=== PATIENT | female | born 1985 | race Caucasian/White ===

== ENCOUNTER 2017-09-22 21:39 | Emergency (ER) | payer OTHER ==
[2017-09-22] MEDS ORDERED: Ibuprofen 200 MG TAB ONE (22:37)
== END 2017-09-22 23:10 | disposition home or self-care (01) ==
LOC: ERS 21:39
DX: J01.90 Acute sinusitis, unspecified (principal); F41.9 Anxiety disorder, unspecified
CPT/HCPCS: 87804; 99283

== ENCOUNTER 2017-12-29 14:04 | Outpatient (CLI) | payer OTHER ==
--- NOTE | 2017-12-29 16:59 | MRI ---
MRI OF THE LUMBAR SPINE WITHOUT CONTRAST: 12/29/17 COMPARISON: MRI of the pelvis 07/21/10 from [facility]. HISTORY: Lumbar radiculopathy with low back pain radiating down both legs. TECHNIQUE: Multiplanar and multisequence MR images were obtained in the lumbar spine without contrast. FINDINGS: No significant disc desiccation is seen. The vertebral bodies and intervertebral discs demonstrate no rmal height and alignment without fracture or subluxation. The conus medullaris terminates normally a t L1-2. There is stable high signal within the S4 segment on the T2 sequence. This is stable compared to the prior examination and nonspecific. The prevertebral and paraspinal soft tissues are otherwise unremarkable. No significant disc bulge or protrusion is seen throughout the lumbar spine. No posterior facet arthr osis is seen. No neural foraminal or central canal stenosis. IMPRESSION: No significant lumbar spine abnormality. POS: [facility]
--- NOTE | 2017-12-29 17:06 | MRI ---
MRI OF PELVIS WITH AND WITHOUT CONTRAST 12/29/17 HISTORY: Followup abnormalities seen in the sacrum. M54.15. COMPARISON: Prior MRI examinations from 2009. FINDINGS: The nonenhancing T2 hyperintense, T1 hypointense focus with the S4 vertebral body has not increased i n size. There is sclerosis around this area. No pathologic fracture. There appears to be a lumbosacral transitional vertebra. The uterus is retroflexed. Small volume free fluid in the pelvis. Right ovarian cyst is present. IMPRESSION: Size unchanged, benign lesion within the sacrum at S4 may represent notochordal remnant versus a tia gn cartilaginous lesion. POS: [facility]
== END 2017-12-29 14:05 | disposition home or self-care (01) ==
LOC: SCSMRI 14:04
PROVIDERS: ATTEND Internal Medicine
DX: M54.16 Radiculopathy, lumbar region (principal); R93.7 Abnormal findings on diagnostic imaging of other parts of musculoskeletal system; M53.3 Sacrococcygeal disorders, not elsewhere classified
CPT/HCPCS: 72148; 72197

== ENCOUNTER 2019-01-21 07:38 | Emergency (ER) | payer OTHER ==
[2019-01-21 08:16] LABS: Bilirubin Small (Negative); Blood, Urine Large (Negative); Glucose, Urine (Dipstick) Negative (Negative); Leukocyte Negative (Negative); Nitrite Negative (Negative); Protein, Urine (Dipstick) 30 mg/dL (Neg-Trace); Urobilinogen 0.2 mg/dL (Less than 2)
[2019-01-21 08:19] LABS: Pregnancy Test - Urine (BHCG) Negative (Negative); Pregu Control Background? CLEAR/WHITE (CLR/WHITE); Pregu Control Bar Appear? YES (CONTROL BAR); Specific Gravity 1.025 (1.002-1.036)
[2019-01-21 08:26] LABS: Clarity Cloudy (Clear)
[2019-01-21 08:28] LABS: RBC/HPF Greater than 50 HPF (0-3); WBC/HPF 0-3 HPF (0-3)
[2019-01-21 08:29] LABS: Calcium Oxalate Crystals 1+ HPF (None Seen)
[2019-01-21 08:29] LABS: #Basophils 0.1 thou/uL (0.0-0.2); #Eosinphils 0.1 thou/uL (0.0-0.7); #Lymphocytes 5.2 thou/uL (1.20-3.40); #Monocytes 0.8 thou/uL (0.11-0.59); #Neutrophils 4.2 thou/uL (1.40-6.50); %Basophils 0.9 % (0.0-1.0); %Eosinophils 0.7 % (0.0-10.0); %Lymphocytes 49.7 % (21.0-51.0); %Neutrophils 40.7 % (42.0-75.0); Hemoglobin 14.9 g/dL (12.0-16.0); Mean Corpuscular Hemoglobin 33.3 pg (27.0-31.0); Platelet Count 329 thou/uL (130-400); RBC Distribution Width 11.4 % (11.5-14.5); Red Blood Cell (RBC) Count 4.48 mill/uL (4.20-5.40); White Blood Cell (WBC) Count 10.4 thou/uL (4.8-10.8)
[2019-01-21 08:30] LABS: Mucous/LPF Few LPF (<2+)
[2019-01-21 08:31] LABS: Bacteria/HPF Rare-Few HPF (None Seen)
--- NOTE | 2019-01-21 08:44 | CT ---
CT of abdomen and pelvis: 01/21/2019 COMPARISON: 09/21/2007 HISTORY: Back pain, lower abdominal pain, flank pain TECHNIQUE: Axial CT imaging at 5 mm intervals from lung bases through pubic symphysis without contras t. Coronal reformatted imaging obtained. FINDINGS: Lack of contrast media limits assessment of the viscera, bowel, vascular structures, and fo r lymphadenopathy. The imaged lung bases are unremarkable. No free intraperitoneal air or fluid. The liver, spleen, and gallbladder appear grossly unremarkable. The pancreas and the adrenal glands appear grossly unremarkable as well. There are 3 punctate nonobstructing stones within the left kidney. Three similar punctate stones are noted within the right kidney. Renal calculi measure up to 3 mm on the right and 2 mm on the left. The urinary bladder is decompressed and thus, not well assessed. The left ureter is mildly prominent. There is a calcification along the course of the distal left ure ter measuring approximately 3 mm, best seen on coronal image 66 and axial image 71. This may signify a distal obstructing left renal calculus. No evidence for obstructive uropathy is noted on the right. No evidence for bowel inflammatory change or bowel obstruction. Review of the osseous structures demonstrates no worrisome lytic or blastic lesion. IMPRESSION: Bilateral renal calculi as detailed above. Findings suspicious for a 3 [address] ne within the distal left ureter as detailed above
[2019-01-21] MEDS ORDERED: Ketorolac Tromethamine 30 MG/ML VIAL ONE (08:48)
[2019-01-21 08:51] LABS: ALT (SGPT) 9 U/L (8-55); AST (SGOT) 10 U/L (5-34); Albumin 4.1 g/dL (3.5-5.0); Alkaline Phosphatase 51 U/L (40-150); Anion Gap 12 mmol/L (10-20); BUN (Urea Nitrogen) 8 mg/dL (7.0-18.7); Bilirubin, Total 0.3 mg/dL (0.2-1.2); Calc. Creatinine Clearance 0 mL/min (70-130); Calcium 9.2 mg/dL (7.8-10.44); Carbon Dioxide 27 mmol/L (22-29); Chloride 104 mmol/L (98-107); Estimated GFR-MDRD 71; Globulin 2.8 g/dL (2.4-3.5); Glucose 80 mg/dL (70-105); Potassium 3.1 mmol/L (3.5-5.1); Protein, Total 6.9 g/dL (6.0-8.3); Sodium 140 mmol/L (136-145)
[2019-01-21] MEDS ORDERED: Potassium Chloride 20 MEQ TAB ONE (09:08)
[2019-01-21] MEDS ORDERED: Morphine 4 MG/ML VIAL ONE (09:08)
[2019-01-21] MEDS ORDERED: Ondansetron PF 4 MG/2 ML Vial ONE (09:08)
--- NOTE | 2019-01-21 10:34 | ULT ---
PELVIC ULTRASOUND INCLUDING TRANSABDOMINAL AND TRANSVAGINAL AND VASCULAR DUPLEX WITH COLOR AND SPECTR AL DOPPLER IMAGING: HISTORY: Pelvic pain and back pain. FINDINGS: The uterus measures 6.9 x 4.5 x 3.4 cm with a 0.8 cm endometrium. The right kidney measures 2.9 x 2.3 x 2.4 cm containing a 1.6 x 1.8 x 1.9 cm dominant follicle. The left ovary measures 2.3 x 1.3 x 1.5 cm. No abnormal fluid collection. No intrauterine mass. IMPRESSION: No significant acute process. A 1.6 x 1.8 x 1.9 cm dominant follicle right ovary. POS: [facility]
== END 2019-01-21 10:20 | disposition home or self-care (01) ==
LOC: ERS 07:38
DX: N13.2 Hydronephrosis with renal and ureteral calculous obstruction (principal); F41.9 Anxiety disorder, unspecified
CPT/HCPCS: 74176; 76856; 80053; 81003; 81015; 81025; 85025; 96361; 96374; 96375; J1885; J2270; J2405

== ENCOUNTER 2019-07-14 20:51 | Emergency (ER) | payer OTHER, SELFPAY ==
[2019-07-14] MEDS ORDERED: Ibuprofen 200 MG TAB ONE (21:06)
[2019-07-14] MEDS ORDERED: Ketorolac Tromethamine 60 MG/2 ML VIAL ONE (22:41)
[2019-07-14] MEDS ORDERED: Dexamethasone 10 MG/ML VIAL ONE (23:32)
== END 2019-07-15 | disposition home or self-care (01) ==
LOC: ERS 20:51
DX: J02.9 Acute pharyngitis, unspecified (principal); F41.9 Anxiety disorder, unspecified
CPT/HCPCS: 87081; 87430; 87804; 96372; 99283; J1100; J1885

== ENCOUNTER 2019-07-17 22:36 | Emergency (ER) | payer OTHER ==
[2019-07-17 23:21] LABS: #Lymphocytes 1.8 thou/uL (1.20-3.40); #Monocytes 0.6 thou/uL (0.11-0.59); #Neutrophils 5.2 thou/uL (1.40-6.50); %Basophils 0.3 % (0.0-1.0); %Eosinophils 0.3 % (0.0-10.0); %Lymphocytes 23.5 % (21.0-51.0); %Monocytes 7.4 % (0.0-10.0); %Neutrophils 68.5 % (42.0-75.0); Hemoglobin 14.4 g/dL (12.0-16.0); Mean Corpuscular Hemoglobin 34.2 pg (27.0-31.0); Platelet Count 287 thou/uL (130-400); RBC Distribution Width 11.8 % (11.5-14.5); White Blood Cell (WBC) Count 7.6 thou/uL (4.8-10.8)
[2019-07-17 23:31] LABS: BHCG - Serum Negative (NEGATIVE); Pregs Control Background? CLEAR/WHITE (CLR/WHITE); Pregs Control Bar Appear? YES (CONTROL BAR)
[2019-07-17 23:37] LABS: ALT (SGPT) 21 U/L (8-55); AST (SGOT) 19 U/L (5-34); Albumin 4.3 g/dL (3.5-5.0); Alkaline Phosphatase 65 U/L (40-110); Anion Gap 16 mmol/L (10-20); BUN (Urea Nitrogen) 4 mg/dL (7.0-18.7); Bilirubin, Total 0.5 mg/dL (0.2-1.2); Calc. Creatinine Clearance 0 mL/min (70-130); Calcium 9.6 mg/dL (7.8-10.44); Carbon Dioxide 25 mmol/L (22-29); Chloride 105 mmol/L (98-107); Estimated GFR-MDRD Greater than 90; Globulin 3.4 g/dL (2.4-3.5); Glucose 97 mg/dL (70-105); Potassium 3.6 mmol/L (3.5-5.1); Protein, Total 7.7 g/dL (6.0-8.3); Sodium 142 mmol/L (136-145)
--- NOTE | 2019-07-17 23:40 | RAD ---
EXAM: CHEST ONE VIEW HISTORY: Cough COMPARISON: None FINDINGS: The cardiac silhouette and pulmonary vasculature is within normal limits. The lungs are clear. The os seous structures are intact. IMPRESSION: No acute cardiopulmonary process.
[2019-07-18] MEDS ORDERED: Ketorolac Tromethamine 30 MG/ML VIAL ONE (00:07)
[2019-07-18 00:27] LABS: Bilirubin Negative (Negative); Blood, Urine Negative (Negative); Clarity Clear (Clear); Glucose, Urine (Dipstick) Normal (Negative); Leukocyte Negative Leu/uL (Negative); Nitrite Negative (Negative); Protein, Urine (Dipstick) Negative (Neg-Trace); Urobilinogen Normal mg/dL (Less than 2)
== END 2019-07-18 00:30 | disposition home or self-care (01) ==
LOC: ERS 22:36
DX: J10.1 Influenza due to other identified influenza virus with other respiratory manifestations (principal); F41.9 Anxiety disorder, unspecified; F32.9 Major depressive disorder, single episode, unspecified; Z79.899 Other long term (current) drug therapy
CPT/HCPCS: 71045; 80053; 81003; 84484; 84703; 85025; 85379; 87804; 93005; 96361; 96374; J1885

== ENCOUNTER 2020-02-13 06:38 | Outpatient (CLI) | payer OTHER ==
--- NOTE | 2020-02-13 07:43 | ULT ---
Pelvic sonogram transabdominal imaging with duplex evaluation HISTORY: Left pelvic pain. COMPARISON: 01/21/2019. Findings urinary bladder has normal appearance. Homogeneous Uterus is slightly retroverted and measur es up to 5.6 cm. Endometrium is 0.5 cm. No free fluid. Each ovary has a normal appearance with good color and spectral Doppler flow. IMPRESSION : No abnormalities are demonstrated.
== END 2020-02-13 06:39 | disposition home or self-care (01) ==
LOC: BICULT 06:38
PROVIDERS: ATTEND Physician Assistant
DX: R10.32 Left lower quadrant pain (principal); R10.2 Pelvic and perineal pain
CPT/HCPCS: 76856

== ENCOUNTER 2021-05-20 02:39 | Emergency (ER) | payer OTHER ==
[2021-05-20 03:19] LABS: Bilirubin Negative (Negative); Blood, Urine Negative (Negative); Clarity Clear (Clear); Glucose, Urine (Dipstick) Normal (Negative); Ketone, Urine Negative (Negative); Leukocyte Negative Leu/uL (Negative); Nitrite Negative (Negative); Protein, Urine (Dipstick) 20 mg/dL (Neg-Trace); Specific Gravity, Urine 1.032 (1.002-1.036); Urobilinogen Normal mg/dL (Less than 2); pH, Urine 5.5 (5.0-9.0)
[2021-05-20 03:20] LABS: Pregnancy Test - Urine (BHCG) Negative (Negative); Pregu Control Background? CLEAR/WHITE (CLR/WHITE); Pregu Control Bar Appear? YES (CONTROL BAR); Specific Gravity 1.032 (1.002-1.036)
[2021-05-20 04:16] LABS: #Basophils 0.1 thou/uL (0.0-0.2); #Eosinphils 0.1 thou/uL (0.0-0.7); #Lymphocytes 3.2 thou/uL (1.20-3.40); #Monocytes 0.7 thou/uL (0.11-0.59); #Neutrophils 4.2 thou/uL (1.40-6.50); %Basophils 0.7 % (0.0-1.0); %Eosinophils 1.2 % (0.0-10.0); %Lymphocytes 38.4 % (21.0-51.0); %Monocytes 8.6 % (0.0-10.0); %Neutrophils 51.1 % (42.0-75.0); Hemoglobin 13.9 g/dL (12.0-16.0); Mean Corpuscular HGB CONC 31.3 g/dL (32.0-36.0); Mean Corpuscular Hemoglobin 31.1 pg (27.0-31.0); Mean Corpuscular Volume 99.4 fL (78.0-98.0); Mean Platelet Volume 7.1 fL (7.4-10.4); Platelet Count 349 thou/uL (130-400); RBC Distribution Width 11.5 % (11.5-14.5); Red Blood Cell (RBC) Count 4.48 mill/uL (4.20-5.40); White Blood Cell (WBC) Count 8.2 thou/uL (4.8-10.8)
[2021-05-20 04:34] LABS: ALT (SGPT) 8 U/L (8-55); AST (SGOT) 14 U/L (5-34); Albumin 4.4 g/dL (3.5-5.0); Alkaline Phosphatase 61 U/L (40-110); Anion Gap 12 mmol/L (10-20); BUN (Urea Nitrogen) 9 mg/dL (7.0-18.7); Bilirubin, Total 0.4 mg/dL (0.2-1.2); Calc. Creatinine Clearance 0 mL/min (70-130); Calcium 9.7 mg/dL (7.8-10.44); Carbon Dioxide 26 mmol/L (22-29); Chloride 102 mmol/L (98-107); Globulin 3.6 g/dL (2.4-3.5); Glucose 98 mg/dL (70-105); Potassium 3.6 mmol/L (3.5-5.1); Sodium 136 mmol/L (136-145)
[2021-05-20] MEDS ORDERED: Ketorolac Tromethamine 30 MG/ML VIAL ONE (05:25)
[2021-05-22 09:15] LABS: Chlamydia by PCR Not Detected (NotDetected); GC by PCR Not Detected (NotDetected)
== END 2021-05-20 05:58 | disposition home or self-care (01) ==
LOC: ERS 02:39
DX: R10.31 Right lower quadrant pain (principal); R11.0 Nausea
CPT/HCPCS: 74177; 80053; 81003; 81025; 85025; 87480; 87491; 87510; 87591; 87660; 96374; J1885

== ENCOUNTER 2021-07-04 08:23 | Emergency (ER) | payer OTHER ==
[2021-07-04] MEDS ORDERED: Famotidine 20 MG TAB ONE (09:04)
[2021-07-04] MEDS ORDERED: predniSONE 20 MG TAB ONE (09:04)
[2021-07-04] MEDS ORDERED: diphenhydrAMINE 25 MG CAP ONE (09:21)
== END 2021-07-04 09:27 | disposition home or self-care (01) ==
LOC: ERS 08:23
DX: L50.0 Allergic urticaria (principal)
CPT/HCPCS: 99282; J7512

== ENCOUNTER 2023-01-30 02:24 | Emergency (ER) | payer OTHER ==
[2023-01-30] MEDS ORDERED: Famotidine 20 MG TAB ONE (03:29)
[2023-01-30] MEDS ORDERED: predniSONE 20 MG TAB ONE (03:29)
== END 2023-01-30 05:03 | disposition home or self-care (01) ==
LOC: ERS 02:24
DX: L50.9 Urticaria, unspecified (principal)
CPT/HCPCS: 99282; J7512

== ENCOUNTER 2023-05-08 10:59 | Outpatient (CLI) | payer OTHER | END 2023-05-08 11:00 | disposition home or self-care (01) | LOC: BICRAD 10:59 | PROVIDERS: ATTEND Internal Medicine | DX: Z11.1 Encounter for screening for respiratory tuberculosis (principal) | CPT/HCPCS: 71046 ==

== ENCOUNTER 2023-06-02 23:57 | Emergency (ER) | payer OTHER ==
[2023-06-03] MEDS ORDERED: Dexamethasone 10 MG/ML VIAL ONE (00:47)
== END 2023-06-03 00:56 | disposition home or self-care (01) ==
LOC: ERS 23:57
DX: J06.9 Acute upper respiratory infection, unspecified (principal)
CPT/HCPCS: 99282; J1100

== ENCOUNTER 2024-04-12 17:14 | Emergency (ER) | payer OTHER ==
[2024-04-12 18:01] LABS: Bilirubin Negative (Negative); Blood, Urine Negative (Negative); CAUTI Indications for Culture Dysuria,urgency,freq; Clarity Turbid (Clear); Glucose, Urine (Dipstick) Normal (Negative); Ketone, Urine 20 mg/dL (Negative); Leukocyte Negative Leu/uL (Negative); Nitrite Negative (Negative); Protein, Urine (Dipstick) 20 mg/dL (Neg-Trace); RBC/HPF 0-3 HPF (0-3); Specific Gravity, Urine 1.032 (1.002-1.036); Squamous Epithelial 21-50 HPF (0-3); Urobilinogen Normal mg/dL (Less than 2); WBC/HPF 0-3 HPF (0-3)
[2024-04-12 18:02] LABS: Bacteria/HPF 1+ HPF (None Seen); Urine Culture Reflex No No
[2024-04-12 19:53] LABS: Pregnancy Test - Urine (BHCG) Negative (Negative); Pregu Control Background? CLEAR/WHITE (CLR/WHITE); Pregu Control Bar Appear? YES (CONTROL BAR)
[2024-04-12 19:59] LABS: #Basophils 0.06 10x3/uL (0.0-0.2); %Basophils 0.7 % (0.0-1.0); %Eosinophils 0.7 % (0.0-10.0); %Lymphocytes 33.7 % (21.0-51.0); %Monocytes 7.7 % (0.0-10.0); %Neutrophils 57.1 % (42.0-75.0); Hematocrit 40.4 % (36.0-47.0); Hemoglobin 13.9 g/dL (12.0-16.0); Mean Corpuscular HGB CONC 34.4 g/dL (32.0-36.0); Mean Corpuscular Hemoglobin 33.7 pg (27.0-31.0); Mean Corpuscular Volume 97.8 fL (78.0-98.0); Mean Platelet Volume 9.5 fL (7.4-10.4); Platelet Count 326 10x3/uL (130-400); Red Blood Cell (RBC) Count 4.13 mill/uL (4.20-5.40)
[2024-04-12 20:10] LABS: BHCG - Serum Negative (NEGATIVE); Pregs Control Background? CLEAR/WHITE (CLR/WHITE); Pregs Control Bar Appear? YES (CONTROL BAR)
[2024-04-12 20:18] LABS: ALT (SGPT) 10 U/L (8-55); AST (SGOT) 15 U/L (5-34); Albumin 4.1 g/dL (3.5-5.0); Alkaline Phosphatase 55 U/L (40-110); Anion Gap 12 mmol/L (10-20); BUN (Urea Nitrogen) 11 mg/dL (7.0-18.7); Bilirubin, Total 0.7 mg/dL (0.2-1.2); Calc. Creatinine Clearance 0 mL/min (70-130); Calcium 9.5 mg/dL (7.8-10.44); Carbon Dioxide 24 mmol/L (22-29); Chloride 105 mmol/L (98-107); Estimated GFR 96; Globulin 3.4 g/dL (2.4-3.5); Glucose 79 mg/dL (70-105); Lipase 11 U/L (8-78); Potassium 3.7 mmol/L (3.5-5.1); Protein, Total 7.5 g/dL (6.0-8.3); Sodium 137 mmol/L (136-145)
== END 2024-04-12 21:34 | disposition home or self-care (01) ==
LOC: ERS 17:14
DX: R10.9 Unspecified abdominal pain (principal)
CPT/HCPCS: 36415; 74176; 80053; 81001; 81025; 83690; 84703; 85025

== ENCOUNTER 2024-06-01 15:14 | Emergency (ER) | payer OTHER ==
[2024-06-01 16:32] LABS: #Basophils 0.05 10x3/uL (0.0-0.2); %Basophils 0.6 % (0.0-1.0); %Eosinophils 0.8 % (0.0-10.0); %Lymphocytes 31.1 % (21.0-51.0); %Monocytes 7.5 % (0.0-10.0); %Neutrophils 59.9 % (42.0-75.0); Hematocrit 41.6 % (36.0-47.0); Hemoglobin 14.5 g/dL (12.0-16.0); Mean Corpuscular HGB CONC 34.9 g/dL (32.0-36.0); Mean Corpuscular Hemoglobin 33.6 pg (27.0-31.0); Mean Corpuscular Volume 96.5 fL (78.0-98.0); Mean Platelet Volume 9.3 fL (7.4-10.4); Platelet Count 337 10x3/uL (130-400); Red Blood Cell (RBC) Count 4.31 mill/uL (4.20-5.40)
[2024-06-01 16:49] LABS: ALT (SGPT) 8 U/L (8-55); AST (SGOT) 13 U/L (5-34); Albumin 4.2 g/dL (3.5-5.0); Alkaline Phosphatase 58 U/L (40-110); Anion Gap 13 mmol/L (10-20); BUN (Urea Nitrogen) 8 mg/dL (7.0-18.7); Bilirubin, Total 0.6 mg/dL (0.2-1.2); Calc. Creatinine Clearance 0 mL/min (70-130); Calcium 9.6 mg/dL (7.8-10.44); Carbon Dioxide 24 mmol/L (22-29); Chloride 103 mmol/L (98-107); Estimated GFR 90; Globulin 3.9 g/dL (2.4-3.5); Glucose 88 mg/dL (70-105); Potassium 3.8 mmol/L (3.5-5.1); Protein, Total 8.1 g/dL (6.0-8.3); Sodium 136 mmol/L (136-145)
== END 2024-06-01 17:04 | disposition home or self-care (01) ==
LOC: ERS 15:14
DX: M77.8 Other enthesopathies, not elsewhere classified (principal)
CPT/HCPCS: 36415; 80053; 85025; 99283

== ENCOUNTER 2024-07-11 07:24 | Emergency (ER) | payer OTHER ==
[2024-07-11] MEDS ORDERED: Diazepam 10 MG/2 ML SYRINGE ONE (08:22)
[2024-07-11 08:26] LABS: #Basophils 0.04 10x3/uL (0.0-0.2); %Basophils 0.4 % (0.0-1.0); %Eosinophils 0.4 % (0.0-10.0); %Lymphocytes 12.9 % (21.0-51.0); %Monocytes 4.5 % (0.0-10.0); %Neutrophils 81.4 % (42.0-75.0); Hematocrit 43.5 % (36.0-47.0); Hemoglobin 15.5 g/dL (12.0-16.0); Mean Corpuscular HGB CONC 35.6 g/dL (32.0-36.0); Mean Corpuscular Hemoglobin 33.5 pg (27.0-31.0); Mean Corpuscular Volume 94.2 fL (78.0-98.0); Mean Platelet Volume 9.3 fL (7.4-10.4); Platelet Count 372 10x3/uL (130-400); RBC Distribution Width 12.1 % (11.5-14.5); Red Blood Cell (RBC) Count 4.62 mill/uL (4.20-5.40)
[2024-07-11 08:53] LABS: ALT (SGPT) 9 U/L (8-55); AST (SGOT) 15 U/L (5-34); Albumin 4.4 g/dL (3.5-5.0); Alkaline Phosphatase 50 U/L (40-110); Anion Gap 13 mmol/L (10-20); BUN (Urea Nitrogen) 7 mg/dL (7.0-18.7); Bilirubin, Total 0.5 mg/dL (0.2-1.2); Calc. Creatinine Clearance 0 mL/min (70-130); Calcium 9.6 mg/dL (7.8-10.44); Carbon Dioxide 22 mmol/L (22-29); Chloride 108 mmol/L (98-107); Estimated GFR 90; Globulin 4.2 g/dL (2.4-3.5); Glucose 97 mg/dL (70-105); Potassium 3.6 mmol/L (3.5-5.1); Protein, Total 8.6 g/dL (6.0-8.3); Sodium 139 mmol/L (136-145)
== END 2024-07-11 10:31 | disposition home or self-care (01) ==
LOC: ERS 07:24
DX: R42 Dizziness and giddiness (principal); R09.81 Nasal congestion; Z55.0 Illiteracy and low-level literacy
CPT/HCPCS: 36415; 36416; 80053; 85025; 96361; 96374; J3360

== ENCOUNTER 2024-08-09 09:42 | Emergency (ER) | payer OTHER ==
[2024-08-09 10:18] LABS: Bacteria/HPF 1+ HPF (None Seen); Bilirubin Negative (Negative); Blood, Urine Negative (Negative); CAUTI Indications for Culture Pelvic or flank pain; Clarity Clear (Clear); Glucose, Urine (Dipstick) Normal (Negative); Ketone, Urine Negative (Negative); Leukocyte Negative Leu/uL (Negative); Nitrite Negative (Negative); Pregnancy Test - Urine (BHCG) Negative (Negative); Protein, Urine (Dipstick) Negative (Neg-Trace); RBC/HPF 0-3 HPF (0-3); Specific Gravity, Urine 1.029 (1.002-1.036); Urobilinogen Normal mg/dL (Less than 2); WBC/HPF 0-3 HPF (0-3); pH, Urine 5.5 (5.0-9.0)
[2024-08-09 10:19] LABS: Pregu Control Background? CLEAR/WHITE (CLR/WHITE); Pregu Control Bar Appear? YES (CONTROL BAR); Specific Gravity 1.029 (1.002-1.036); Urine Culture Reflex No No
[2024-08-09 10:32] LABS: #Basophils 0.05 10x3/uL (0.0-0.2); %Basophils 0.9 % (0.0-1.0); %Eosinophils 1.7 % (0.0-10.0); %Lymphocytes 40.2 % (21.0-51.0); %Monocytes 6.6 % (0.0-10.0); %Neutrophils 50.4 % (42.0-75.0); Hematocrit 41.2 % (36.0-47.0); Hemoglobin 14.2 g/dL (12.0-16.0); Mean Corpuscular HGB CONC 34.5 g/dL (32.0-36.0); Mean Corpuscular Hemoglobin 33.3 pg (27.0-31.0); Mean Corpuscular Volume 96.7 fL (78.0-98.0); Mean Platelet Volume 9.8 fL (7.4-10.4); Platelet Count 363 10x3/uL (130-400); RBC Distribution Width 12.3 % (11.5-14.5); Red Blood Cell (RBC) Count 4.26 mill/uL (4.20-5.40)
[2024-08-09 10:50] LABS: ALT (SGPT) Less than 7 U/L (Less than 34); AST (SGOT) 16 U/L (11-34); Albumin 4.2 g/dL (3.1-4.5); Alkaline Phosphatase 52 U/L (40-110); Anion Gap 13 mmol/L (10-20); BUN (Urea Nitrogen) 11 mg/dL (7.0-18.7); Bilirubin, Total 0.4 mg/dL (0.3-1.2); Calc. Creatinine Clearance 0 mL/min (70-130); Calcium 9.2 mg/dL (7.8-10.44); Carbon Dioxide 20 mmol/L (22-29); Chloride 108 mmol/L (98-107); Estimated GFR 79; Globulin 3.8 g/dL (2.4-3.5); Glucose 94 mg/dL (70-105); Lipase 16 U/L (8-78); Potassium 3.9 mmol/L (3.5-5.1); Sodium 137 mmol/L (136-145)
[2024-08-09] MEDS ORDERED: Ondansetron PF 4 MG/2 ML Vial ONE (11:05)
[2024-08-09] MEDS ORDERED: Ketorolac Tromethamine 30 MG (1 mL) VIAL ONE ×2 (11:05→11:10)
[2024-08-09] MEDS ORDERED: Dicyclomine 20 MG TAB ONE (11:54)
[2024-08-09] MEDS ORDERED: Iopamidol-370 76% 500 ML MDV (1 ML CHARGE) ONE (12:35)
== END 2024-08-09 13:06 | disposition home or self-care (01) ==
LOC: ERS 09:42
DX: R10.11 Right upper quadrant pain (principal)
CPT/HCPCS: 36415; 74177; 80053; 81001; 81025; 83690; 85025; 96374; 96375; J1885; J2405; Q9967

== ENCOUNTER 2025-03-04 16:19 | Emergency (ER) | payer OTHER ==
[2025-03-04 18:33] LABS: #Basophils 0.05 10x3/uL (0.0-0.2); #Eosinophils 0.05 10x3/uL (0.0-0.7); #Monocytes 0.56 10x3/uL (0.11-0.59); #Neutrophils 4.36 10x3/uL (1.40-6.50); %Basophils 0.7 % (0.0-1.0); %Eosinophils 0.7 % (0.0-10.0); %Lymphocytes 32.9 % (21.0-51.0); %Monocytes 7.5 % (0.0-10.0); %Neutrophils 57.9 % (42.0-75.0); Hematocrit 39.4 % (36.0-47.0); Hemoglobin 13.4 g/dL (12.0-16.0); Mean Corpuscular Hemoglobin 33.0 pg (27.0-31.0); Mean Corpuscular Volume 97.0 fL (78.0-98.0); Platelet Count 298 10x3/uL (130-400); Red Blood Cell (RBC) Count 4.06 mill/uL (4.20-5.40); White Blood Cell (WBC) Count 7.51 10x3/uL (4.8-10.8)
[2025-03-04 18:53] LABS: ALT (SGPT) 8 U/L (Less than 34); AST (SGOT) 16 U/L (11-34); Albumin 4.2 g/dL (3.1-4.5); Alkaline Phosphatase 43 U/L (40-110); Anion Gap 14 mmol/L (10-20); BUN (Urea Nitrogen) 9 mg/dL (7.0-18.7); Bilirubin, Total 0.7 mg/dL (0.3-1.2); Calc. Creatinine Clearance 0 mL/min (70-130); Calcium 9.0 mg/dL (7.8-10.44); Carbon Dioxide 24 mmol/L (22-29); Chloride 104 mmol/L (98-107); Globulin 2.8 g/dL (2.4-3.5); Glucose 83 mg/dL (70-105); Potassium 4.0 mmol/L (3.5-5.1); Sodium 138 mmol/L (136-145)
== END 2025-03-05 00:24 | disposition home or self-care (01) ==
LOC: ERS 16:19
DX: K62.5 Hemorrhage of anus and rectum (principal); R07.9 Chest pain, unspecified; R00.0 Tachycardia, unspecified
CPT/HCPCS: 36415; 71045; 76705; 80053; 84484; 85025; 85379; 93005